=== PATIENT | female | born 1975 | race Caucasian/White ===

== ENCOUNTER 2017-01-19 11:07 | Inpatient (IN) | payer OTHER ==
[~2017-01-19] VITALS: Ht 160 cm; Wt 122.5 kg
[2017-01-19] MEDS ORDERED: EFFEXOR-XR75 MG PO (11:39)
[2017-01-19] MEDS ORDERED: WELLBUTRIN XL300 M1 PO (11:39)
[2017-01-19] MEDS ORDERED: DEPAKOTE500 MG PO (11:39)
[2017-01-19] MEDS ORDERED: TRAZODONE50 M1 PO (11:40)
[2017-01-19] MEDS ORDERED: ARISTADA441 MG/1.6 (11:43)
[2017-01-19] MEDS ORDERED: METFORMIN HYD1000 M2 PO (11:44)
[2017-01-19] MEDS ORDERED: LANTUS SOLOS100 U/M1 SC (11:44)
[2017-01-19] MEDS ORDERED: ENALAPRIL MALEAT5 MG (11:45)
[2017-01-19 11:49] LABS: BASOPHIL % 0.3 % (0-2); PLATELET COUNT 242 x10^3mcL (130-400)
[2017-01-19 12:01] LABS: UA SPECIFIC GRAVITY >=1.030 (1.005-1.035); microscopic required? YES; urine erythrocyte 1+ (NEGATIVE)
[2017-01-19 12:08] LABS: RED CELL DISTRIBUTION WIDTH 15.1 % (11.5-14.5)
[2017-01-19 12:19] LABS: CARBON DIOXIDE 27.8 mmol/L (21-32); CHLORIDE SERUM 102 mmol/L (98-107); CREATININE SERUM 0.9 mg/dL (0.6-1.0); GFR1 > 60 mL/min; GLUCOSE SERUM 293 mg/dL (74-106); POTASSIUM SERUM 4.4 mmol/L (3.5-5.1); SODIUM SERUM 138 mmol/L (136-145)
[2017-01-19 12:22] LABS: ALKALINE PHOSPHATASE 102 U/L (46-116); ALT/SGPT 59 U/L (14-59); AST/SGOT 38 U/L (15-37); BILIRUBIN TOTAL 0.41 mg/dL (0.20-1.00); TOTAL PROTEIN, SERUM 7.3 g/dL (6.4-8.2)
[2017-01-19 12:28] LABS: ALBUMIN 3.3 g/dL (3.4-5.0)
[2017-01-19 12:48] LABS: AMPHETAMINE QUAL UR NONE DETECTED (NEG <=1000)
[2017-01-19 20:02] VITALS: BP 149/78
[2017-01-19 20:07] VITALS: Ht 160 cm; Wt 122.5 kg
[2017-01-19 20:14] LABS: CHOLESTEROL/HDL RATIO 3.4
[2017-01-19 20:24] LABS: FREE T4 0.87 ng/dL (0.76-1.46); FREE THYROXINE INDEX 2.3 ug/dL (1.4-4.5); T4(THYROXINE) 7.6 ug/dL (4.7-13.3)
[2017-01-19 20:25] LABS: T3 TOTAL 1.35 ng/mL
[2017-01-20 05:24] VITALS: BP 124/77
[2017-01-20 06:14] LABS: BASOPHIL % 0.4 % (0-2); PLATELET COUNT 206 x10^3mcL (130-400)
[2017-01-20 06:21] LABS: RED CELL DISTRIBUTION WIDTH 15.9 % (11.5-14.5)
[2017-01-20 06:48] LABS: CALCIUM 8.6 mg/dL (8.5-10.1); CARBON DIOXIDE 24.1 mmol/L (21-32); CHLORIDE SERUM 103 mmol/L (98-107); CREATININE SERUM 0.7 mg/dL (0.6-1.0); GFR1 > 60 mL/min; GLUCOSE SERUM 248 mg/dL (74-106); MAGNESIUM 1.9 mg/dL (1.8-2.4); PHOSPHOROUS 3.6 mg/dL (2.5-4.9); POTASSIUM SERUM 4.1 mmol/L (3.5-5.1); SODIUM SERUM 140 mmol/L (136-145)
[2017-01-20 22:01] VITALS: BP 103/60
[2017-01-21 06:18] LABS: BASOPHIL % 0.3 % (0-2); PLATELET COUNT 196 x10^3mcL (130-400)
[2017-01-21 06:29] VITALS: BP 111/69
[2017-01-21 06:30] LABS: CALCIUM 8.3 mg/dL (8.5-10.1); CARBON DIOXIDE 27.3 mmol/L (21-32); CHLORIDE SERUM 104 mmol/L (98-107); CREATININE SERUM 0.7 mg/dL (0.6-1.0); GFR1 > 60 mL/min; GLUCOSE SERUM 159 mg/dL (74-106); POTASSIUM SERUM 3.6 mmol/L (3.5-5.1); SODIUM SERUM 140 mmol/L (136-145)
[2017-01-21 06:41] LABS: RED CELL DISTRIBUTION WIDTH 15.5 % (11.5-14.5)
[2017-01-21 09:40] VITALS: BP 109/69
[2017-01-21 10:28] VITALS: BP 109/69
== END 2017-01-21 12:00 | disposition home or self-care (01) | DRG 154 ==
LOC: ED 11:07 → DU 18:20
PROVIDERS: Emergency Medicine; Family Medicine; ADMIT Family Medicine
DX: G47.30 Sleep apnea, unspecified (principal); E43 Unspecified severe protein-calorie malnutrition; F31.4 Bipolar disorder, current episode depressed, severe, without psychotic features; D68.69 Other thrombophilia; R45.851 Suicidal ideations; Z68.42 Body mass index [BMI] 45.0-49.9, adult; E11.65 Type 2 diabetes mellitus with hyperglycemia; J45.909 Unspecified asthma, uncomplicated; G47.00 Insomnia, unspecified; I10 Essential (primary) hypertension; F41.8 Other specified anxiety disorders; E66.01 Morbid (severe) obesity due to excess calories; Z87.891 Personal history of nicotine dependence; Z79.4 Long term (current) use of insulin; Z79.84 Long term (current) use of oral hypoglycemic drugs
CPT/HCPCS: 82962; 83880; 84439; G0480; J1815; J2270; J7030; J7613; Q0092

== ENCOUNTER 2017-05-26 22:28 | Inpatient (IN) | payer OTHER ==
[~2017-05-26] VITALS: Ht 160 cm; Wt 121.6 kg
[~2017-05-26 22:28] MED LIST: ARISTADA441 MG/1.6; DEPAKOTE500 MG PO; EFFEXOR-XR75 MG PO; ENALAPRIL MALEAT5 MG; LANTUS SOLOS100 U/M1 SC; METFORMIN HYD1000 M2 PO; TRAZODONE50 M1 PO; WELLBUTRIN XL300 M1 PO
--- NOTE | 2017-05-26 23:20 | NUR ---
D10 AND 2 AMPS OF D50 PLACED AT THE BEDSIDE FOR STANDBY PER DR SEWELL
--- NOTE | 2017-05-26 23:27 | NUR ---
PATIENT SEEN IN ROOM, EMS REPORTS PATIENT OF ON HER INSULIN, 6 X 300 UNITS OF NOVOLOG, LANTUS X 2 300 UNITS. PATIENT EXPTRSS SHE FEELS TIRED AND SWEATY. PATIENT WAS SEEN BY MD. FINGER STICK BLOOD SUGAR IS 254 MG/DL. PATIENT REPORTS BLOOD SUGAR AT HOME WAS 401 AT 8PM WHEN SHE TOOK THE INSULIN.
[2017-05-26 23:42] LABS: BASOPHIL % 0.4 % (0-2); PLATELET COUNT 236 x10^3mcL (130-400)
[2017-05-26 23:44] LABS: RED CELL DISTRIBUTION WIDTH 15.2 % (11.5-14.5)
[2017-05-26 23:58] LABS: CARBON DIOXIDE 29.7 mmol/L (21-32); CHLORIDE SERUM 101 mmol/L (98-107); CREATININE SERUM 0.8 mg/dL (0.6-1.0); GFR1 > 60 mL/min; GLUCOSE SERUM 237 mg/dL (74-106); POTASSIUM SERUM 3.3 mmol/L (3.5-5.1); SODIUM SERUM 139 mmol/L (136-145)
[2017-05-27] VITALS (7 sets, daily range): BP systolic 114–153; BP diastolic 64–93; Ht 160 cm; Wt 121.6 kg
[2017-05-27 00:05] LABS: ALBUMIN 3.1 g/dL (3.4-5.0); ALKALINE PHOSPHATASE 110 U/L (46-116); ALT/SGPT 66 U/L (14-59); AST/SGOT 28 U/L (15-37); BILIRUBIN TOTAL 0.2 mg/dL (0.20-1.00); TOTAL PROTEIN, SERUM 7.4 g/dL (6.4-8.2)
[2017-05-27] MEDS ORDERED: INVEGA TRINZA (00:06)
--- NOTE | 2017-05-27 00:12 | NUR ---
PATIEN AMBULATED TO THE BATHROOM FLUID BOLUS GIVEN ON RETURN. PATIENT DENIES ANY COMPLAINT.
--- NOTE | 2017-05-27 01:03 | NUR ---
REPORT WAS GIVEN TO MOHSEN. PATIENT TRANSPORTED TO ROOM ICU #3.
[2017-05-27 01:04] LABS: UA SPECIFIC GRAVITY 1.025 (1.005-1.035); microscopic required? YES; urine erythrocyte 1+ (NEGATIVE)
[2017-05-27 01:13] LABS: AMPHETAMINE QUAL UR NONE DETECTED (NEG <=1000)
[2017-05-27 01:24] LABS: T3 TOTAL 1.07 ng/mL
--- NOTE | 2017-05-27 01:28 | NUR ---
PATIENT SLEEPING AND SNORING. BLOOD SUGAR 505 MG, SAME RECCHECKED -NOW 475 MG/DL
[2017-05-27 01:49] LABS: MAGNESIUM 1.8 mg/dL (1.8-2.4)
[2017-05-27 01:50] LABS: CHOLESTEROL/HDL RATIO 8.5
[2017-05-27 01:54] LABS: FREE T4 0.96 ng/dL (0.76-1.46); FREE THYROXINE INDEX 2.8 ug/dL (1.4-4.5); T4(THYROXINE) 8.8 ug/dL (4.7-13.3)
--- NOTE | 2017-05-27 02:52 | NUR ---
PATIENT WAS RECEIVED FROM ED VIA GUERNEY ASSISTED BY NURSE. NO DISTRESS NOTED. PATIENT DENIES PAIN. PATIENT STATES HAVING THOUGHTS OF HARMING HERSELF AT THIS TIME. PATIENT DENIES HAVING ANY PLAN AT THIS TIME BUT STATES "SHE JUST WANTS TO ". IV SITE TO LEFT HAND, PATENT AND INTACT. IV SITE TO RIGHT HAND WAS INFILTRATED, DC'D AT THIS TIME. IV FLUID STARTED PER DOCTOR'S ORDER. BED IN LOWEST POSITION. CALL LIGHT WITHIN REACH. WILL CONTINUE TO MONITOR.
--- NOTE | 2017-05-27 03:30 | NUR ---
PATIENT RESTING COMFORTABLY WITH NO DISTRESS NOTED AT THIS TIME. WILL CONTINUE TO MONITOR.
[2017-05-27 05:17] LABS: BASOPHIL % 0.4 % (0-2); PLATELET COUNT 213 x10^3mcL (130-400)
[2017-05-27 05:19] LABS: RED CELL DISTRIBUTION WIDTH 15.1 % (11.5-14.5)
[2017-05-27 05:31] LABS: CALCIUM 8.6 mg/dL (8.5-10.1); CARBON DIOXIDE 30.5 mmol/L (21-32); CHLORIDE SERUM 101 mmol/L (98-107); CREATININE SERUM 0.6 mg/dL (0.6-1.0); GFR1 > 60 mL/min; GLUCOSE SERUM 170 mg/dL (74-106); MAGNESIUM 1.8 mg/dL (1.8-2.4); PHOSPHOROUS 3.7 mg/dL (2.5-4.9); SODIUM SERUM 141 mmol/L (136-145)
--- NOTE | 2017-05-27 06:01 | NUR ---
PATIENT RESTED SINCE ARRIVING ON UNIT. NO DISTRESS NOTED. NO C/O PAIN/DISCOMFORT. SAFETY AND COMFORT MEASURES MAINTAINED. BED IN LOWEST POSITION. CALL LIGHT WIHTIN REACH. WILL ENDORSE TO NEXT SHIFT NURSE.
--- NOTE | 2017-05-27 07:12 | NUR ---
RECIEVED REPORT FROM MOHSEN PORTILLO AT BEDSIDE. WILL RESUME CARE.
--- NOTE | 2017-05-27 07:42 | NUR ---
SET BREAKFAST TRAY WITH MINIMIAL ASSISTS. BED AT LOW AND CALL LIGHT WITHIN REACH.
--- NOTE | 2017-05-27 08:00 | NUR ---
PT IS AAOX4 ABLE TO FOLLOW VERBAL COMMANDS AND MAKE NEEDS KNOWN. BL PUPILS EQUAL AND REACTIVE TO LIGHT 2MM, BRISK. PT DENIES NAPOLES. PT WEAR GLASSES, NO DRAINAGE NOTED FROM EENT. PT ON RA SYMMETRIC CHEST RISE. DIMINISH LUNG SOUNDS TO BL SIDES OF CHEST. PT DENIES COUGH. BS ACTIVE X4 QUADRANTS. ABD IS ROUND AND SOFT. NONTENDER PALPATION TO ABD. NO SIGNS OF BM AT THIS TIME. PT IS ABLE TO VOID. BEDSIDE COMMODES AT BEDSIDE. PT IS ABLE TO MOVE AROUND BED BY SELF. PT IS HAS MILD GENERALIZED WEAKNESS. PUPLSE ARE MOD PALPABLE TO BUE AND BLE. CAP REFILL <3SEC. TRACE EDEMA TO BLE. PT DENIES ANY WANTS OF HURTING SELF OR OTHERS. DENIES HAVING A PLAN. PT DENIES ANT DISCOMFORT. D10 INFUSING AT 100ML/HR TO L HAND. IV SITE WNL. BED AT LOW AND CALL LIGHT WITHIN REACH. TO
--- NOTE | 2017-05-27 09:30 | NUR ---
DR. RODRIGUEZ AT BEDSIDE TO UPDATE PLAN OF CARE. AWAITING FOR NEW ORDERS.
--- NOTE | 2017-05-27 10:00 | NUR ---
PT ATE 80% OF BREAKFAST TOLERATED DIET WELL.
--- NOTE | 2017-05-27 10:09 | NUR ---
BLOOD SUGAR 159 DR. MICHAEL MADE AWARE PT IS NOT COVERED FOR INSULIN.
--- NOTE | 2017-05-27 12:34 | NUR ---
PT IS AOX4 ABLE TO FOLLOW VERBAL COMMANDS AND MAKE NEEDS KNOWN. PT DENIES NAPOLES. BL PUPILS EQUAL AND REACTIVE TO LIGHT 3MM, BRISK. PT WEARS GLASSES AND NO DRAINAGE NOTED FROM EENT. GCS 15. MOD PALPABLE BUE AND BLE PULSES. TRACE EDEMAT TO BLE. CAP REFILL <3 SEC. BS ACTIVE X4 QUADRANTS. NONTENDER PALPATION TO ABD. NO SIGNS OF N/V. PT IS ABLE TO VOID BY SELF. BEDSIDE COMMODE AT BEDSIDE. PT IS ABLE TO GET UP TO BEDSIDE COMMODE WITH MINIMAL ASSISTS. PT DENIES ANY PAIN AND DISCOMFORT AT THIS TIME. PT DENIES WANTING TO HURT SELF OR HAVE PLANS TO HURT SELF. BED AT LOW AND CALL LIGHT WITHIN REACH.
--- NOTE | 2017-05-27 13:00 | NUR ---
PT ATE 90% OF LUNCH, TOLERATE DIET WELL. NO S/S OF N/V.
--- NOTE | 2017-05-27 13:40 | NUR ---
POISON CONTROL CALLED AT THIS TIME AND NOTIFIED OF PT'S CASE. RECOMMENDATIONS INCLUDE MONITORING: BLOOD SUGAR, PHOS, MAG, AND POTASSIUM. CONTINUING DEXTROSE UNTIL PATIENT IS PAST THE 24 HOUR QUIANA DUE TO LANTUS DOSAGE. THEN MONITOR BLOOD SUGARS FREQUENTLY FOR 4-6HOURS AFTER STOPPING DEXTROSE TO ENSURE THAT PT IS ABLE TO MAINTAIN WITHOUT DEXTROSE SUPPORT. DR MICHAEL MADE AWARE
--- NOTE | 2017-05-27 15:23 | NUR ---
PT C/O NAPOLES 01/05 WILL MEDCATE PER EMAR.
--- NOTE | 2017-05-27 15:30 | NUR ---
PT IS AAOX4 ABLE TO VERBALIZE NEEDS AND FOLLOW VERBAL COMMANDS. BL PUPILS EQUAL AND REACTIVE TO LIGHT 3MM, BRISK. GCS 15. PT ON RA. DIMINISH LUNG SOUNDS THROUGHOUT LUNG HOOKS. SYMMETRIC CHEST RISE. BS ACTIVE X4 QUANTRANTS. DENIES N/V. S1S2 PRESENT UPON AUSCULTATION. PT DENIES CHEST PAIN. TRACE EDEMA TO BLE. D10 INFUSING TO LHAND AT 20ML/HR. IV SITE WNL. BED AT LOW AND CALL LIGHT WITHIN REACH.
--- NOTE | 2017-05-27 16:24 | NUR ---
DR. GOINS AT BEDSIDE TO ASSESS PT. PER DR. GOINS PT IS NOT CLEAR, PT IS SUICIDAL.
[2017-05-27 18:45] LABS: CALCIUM 8.9 mg/dL (8.5-10.1); CARBON DIOXIDE 30.9 mmol/L (21-32); CHLORIDE SERUM 102 mmol/L (98-107); CREATININE SERUM 0.8 mg/dL (0.6-1.0); GFR1 > 60 mL/min; GLUCOSE SERUM 208 mg/dL (74-106); POTASSIUM SERUM 4.3 mmol/L (3.5-5.1); SODIUM SERUM 140 mmol/L (136-145)
--- NOTE | 2017-05-27 19:11 | NUR ---
PT REPORT RECEIVED FROM LINDSEY CROSS. QUESTIONS AND CONCERNS ADDRESSED BEDSIDE.
--- NOTE | 2017-05-27 19:13 | NUR ---
REPORT GIVEN TO RHONDA PORTILLO AT BEDSIDE. ALL QUESTIONS AND CONCERNS ANSWERED.
--- NOTE | 2017-05-27 19:20 | NUR ---
RECEIVED PT LAYING IN BED ASLEEP, AWAKENS EASILY TO VERBAL/TACTILE STIMULUS. A&O X4, FOLLOWS COMMANDS, ABLE TO MAKE NEEDS KNOWN. OPENS EYES SPONTANEOUSLY. PT IS ON RA, BREATHING EVEN AND UNLABORED, SYMMETRICAL CHEST EXANSION, NSR NOTED TO SENIOR UX DESIGNER, DENIES CHEST PAIN. PT WEARS GLASSES, NO DRAINAGE TO EENT. TRACE EDMEA TO BLE, MODERATE PULSES BUE/BLE. INFUSING D10 TO IV SITE. ABDOMEN OBESE, ACTIVE BOWEL SOUNDS X4 QUADRANTS, NO BM NOTED, ABLE TO USE BEDSIDE COMMOE TO URINATE. BED IN LOWEST POSITION FOR PT SAFETY, WILL MONITOR PT CLOSELY.
--- NOTE | 2017-05-27 21:00 | NUR ---
DR. CERNA AT BEDSIDE TO ASSESS THE PT.
--- NOTE | 2017-05-27 21:41 | NUR ---
RT AT BEDSIDE TO TITRATED FIO2 TO 100%.
--- NOTE | 2017-05-28 01:22 | NUR ---
PT RESTING IN BED ASLEEP, NO S/S OF DISTRESS NOTED.
[2017-05-28 03:38] VITALS: BP 120/78
--- NOTE | 2017-05-28 04:34 | NUR ---
OUTCOMES SPECIALIST AT BEDSIDE AT BEDSIDE FOR BLOOD DRAW.
--- NOTE | 2017-05-28 04:59 | NUR ---
D10 IV FLUID DC'D. PT STARTED ON D5 1/2 NS AT 50 ML/HR.
--- NOTE | 2017-05-28 05:21 | NUR ---
DR. SKINNER AT BEDSIDE TO ASSESS THE PT. QUESTIONS AND CONCERNS ADDRESSED BEDSIDE.
[2017-05-28 05:50] LABS: CALCIUM 8.9 mg/dL (8.5-10.1); CHLORIDE SERUM 102 mmol/L (98-107); CREATININE SERUM 0.7 mg/dL (0.6-1.0); GFR1 > 60 mL/min; GLUCOSE SERUM 152 mg/dL (74-106); POTASSIUM SERUM 3.7 mmol/L (3.5-5.1); SODIUM SERUM 140 mmol/L (136-145)
--- NOTE | 2017-05-28 07:04 | NUR ---
PT REPORT GIVEN TO LINDSEY CROSS. UPDATES PROVIDED.
--- NOTE | 2017-05-28 07:11 | NUR ---
RECIEVED REPORT FROM RHONDA PORTILLO AT BEDSIDE. WILL RESUME CARE.
[2017-05-28 07:50] VITALS: BP 140/81
--- NOTE | 2017-05-28 07:59 | NUR ---
PT IS AAOX4 ABLE TO FOLLOW VERBAL COMMANDS AND MAKE NEEDS KNOWN. PT DENIES NAPOLES. PT OPENS EYES SPONTANEOUSLY. BL PUPILS EQUAL PUPILS AND REACTIVE TO LIGHT 3MM, BRISK. PT WEARS GLASSES. NO DRAINAGE NOTED FROM EENT. PT ON RA, DIMINISH LUNG SOUNDS TO BL LUNG HOOKS. SYMMETRIC CHEST RISE. RR 27, SOB NOTED, NO ACUTE DISTRESS NOTED. PT DENIES HAVING ANY DIFFICULTIES BREATHING PER PT IT'S HER BASELINE. BS ACTIVE X 4 QUADRANTS, ABD IS ROUND AND FIRM. NO SIGNS OF N/V AND ABD DISCOMFORT. PT IS ABLE TO GET UP TO BEDSIDE COMMODES WITH MINIMIAL ASSISTANCE. NO EDEMA NOTED. MODERATE PULSES TO BUE AND BLE. SCD IN PLACE TO BLE. PT DENIES CHEST PAIN, S1S2 PRESENT UPON AUSCULATION. PT DENIES ANY PAIN AT THIS TIME. D51/2NS @ 50ML/HR TO LHAND. IV SITE WNL. BED AT LOW AND CALL LIGHT WITHIN REACH.
--- NOTE | 2017-05-28 08:34 | NUR ---
TURNED OFF TUBE TUBING FOR CPAP TRAILS. WILL CONTINUE TO MONITOR. RACIEL RT AT BEDSIDE.
--- NOTE | 2017-05-28 10:20 | NUR ---
PT AMBULATED TO BEDSIDE COMMODE WITH STEADY GAIT TO VOID. ALL LINES ARE CHANGED AND GOWN. PT WAS ABLE TO WIPE SELF DOWN WITH WIPES, ASSISTED PT TO WIPE THE BACK. WASHED PT'S HAIR WITH WATERLESS CAP. PT WAS ABLE TO AMBULATE WITH STEADY GAIT TO SKIN AND DO SELF CARE.
--- NOTE | 2017-05-28 10:38 | NUR ---
DR. TORRES AT BEDSIDE DISCUSSING PLAN OF CARE WITH PT.
--- NOTE | 2017-05-28 10:57 | NUR ---
PT C/O OF SORE THROAT 12/06 WILL MEDICATE PER EMAR. WILL CONTINUE TO MONITOR.
--- NOTE | 2017-05-28 11:15 | NUR ---
ECHO NOLASCO 252, GIIG GIVE [address] SKINNER IS MADE AWARE.
[2017-05-28 11:37] VITALS: BP 150/89
--- NOTE | 2017-05-28 11:47 | NUR ---
PT IS AAOX4 ABLE TO FOLLOW VERBAL COMMANDS AND MAKE NEEDS KNOWN. BL PUPILS EQUAL AND REACTIVE TO LIGHT 3MM, BRISK. PT DENIES NAPOLES. S1S2 PRESENT UPON AUSCULTATION. PT DENIES DIZZINESS AND CHEST PAIN. BS ACTIVE X4 QUADRANTS. NO SIGNS OF N/V. ABD IS ROUND AND FIRM. NONTENDER PALPATION TO ABD. PT IS ABLE TO VOID. BEDSIDE COMMODE AT BEDSIDE. NO EDEMA NOTED, SCD IS ON BLE. PT DENIES ANY PAIN AT THIS TIME. D51/2NS INFUSING AT 50ML/HR TO LHAND. BED AT LOW AND CALL LIGHT WITHIN REACH. PT SITTING IN BED WATCHING TV.
--- NOTE | 2017-05-28 13:59 | NUR ---
PT RESTING IN BED WATCHING TV AT THIS TIME. NO SIGNS OF ACUTE DISTRESS. BED AT LOW AND CALL LIGHT WITHIN REACH. WILL CONTINUE TO MONITOR.
[2017-05-28 15:12] VITALS: BP 121/58
--- NOTE | 2017-05-28 15:25 | NUR ---
PT IS AAOX4 ABLE TO FOLLOW VERBAL COMMANDS AND VERBALIZE NEEDS. BL PUPILS EQUAL AND REACTIVE TO LIGHT 3MM, BRISK. PT DENIES NAPOLES. PT ON RA, DIMINISH LUNG SOUNDS TO BL SIDES OF LUNGS. SYMMETRIC CHEST RISE. BS ACTIVE X4 ABD. NO SIGNS OF N/V. BEDSIDE COMMODES AT BEDSIDE PT IS ABLE TO AMBULATE TO COMMODE WITH STEADY GAIT. NO EDEMA NOTED. D51/2NS INFUSING AT 50ML/HR TO L HAND. IV SITE WNL. PT DENIES ANY PAIN OR DISCOMFORT AT THIS TIME. BED AT LOW AND CALL LIGHT WITHIN REACH.
--- NOTE | 2017-05-28 19:05 | NUR ---
PT REPORT RECEIVED FROM LINDSEY CROSS. QUESTIONS AND CONCERNS ADDRESSED BEDSIDE.
--- NOTE | 2017-05-28 19:10 | NUR ---
RECEIVED PT ASLEEP IN BED, AWAKENS TO VERBAL/TACTILE STIMULUS. A&O X4, FOLLOWS COMMANDS, ABLE TO MAKE NEEDS KNOWN. PT IS ON RA, EVEN AND UNLABORED BREATHING, SYMMETRICAL CHEST EXPANSION, PT DENIES COUGH. NSR NOTED TO SENIOR NET DEVELOPER, PT DENIES PAIN. NO EDMEA NOTED, PT REFUSES SCD'S, PT EDUCATION PROVIDED. ABDOMEN OBESE, NO BM NOTED, PT ABLE TO USE BEDSIDE COMMODE TO URINATE. PT ABLE TO TURN AND REPOSITON SELF, NO CONTRACTURES OR DEFORMITIES NOTED. BED IN LOWEST POSITION FOR PT SAFETY.
[2017-05-28 19:31] VITALS: BP 119/75
[2017-05-28 23:54] VITALS: BP 95/47
--- NOTE | 2017-05-29 01:00 | NUR ---
PT ASLEEP RESTING IN BED AT THIS TIME, NO S/S OF DISTRESS NOTED.
[2017-05-29 03:50] VITALS: BP 104/66
--- NOTE | 2017-05-29 04:10 | NUR ---
REVIEW RN AT BEDSIDE FOR MORNING BLOOD DRAW.
[2017-05-29 05:09] LABS: CALCIUM 8.5 mg/dL (8.5-10.1); CARBON DIOXIDE 28.5 mmol/L (21-32); CHLORIDE SERUM 103 mmol/L (98-107); CREATININE SERUM 0.7 mg/dL (0.6-1.0); GFR1 > 60 mL/min; GLUCOSE SERUM 195 mg/dL (74-106); POTASSIUM SERUM 3.9 mmol/L (3.5-5.1); SODIUM SERUM 139 mmol/L (136-145)
--- NOTE | 2017-05-29 05:23 | NUR ---
DR. JAUREGUI AT BEDSIDE, QUESTIONS AND CONCERNS ADDRESSED.
--- NOTE | 2017-05-29 05:33 | NUR ---
DR. SKINNER AT BEDSIDE TO ASSESS THE PT. QUESTIONS AND CONCERNS ADDRESSED.
--- NOTE | 2017-05-29 07:45 | NUR ---
SLEEPING, AROUSABLE. ORIENTED X4. OBESE. BREATHING SOUND DIMINISHED SMITA BASES, BUT CLEARE SMITA UPPER LOBES. NO RESP DISTRESS ON RA. IVF OF NS 150CC/HR INFUSING WELL, IV SITE TO L HAND INTACT. DENIED PAIN. CONTINUE MONITOR.
[2017-05-29 08:00] VITALS: BP 126/74
--- NOTE | 2017-05-29 08:45 | NUR ---
FINISHED 855 OF [facility] DIET BREAKFAST. TOLERATED WELL.
[2017-05-29 12:00] VITALS: BP 88/51
--- NOTE | 2017-05-29 14:30 | NUR ---
DR. GOINS CAME TO SEE PATIENT.
[2017-05-29 16:00] VITALS: BP 155/85
--- NOTE | 2017-05-29 17:19 | NUR ---
[facility]. REPORT GIVEN TO LINDSEY VILCHIS.
--- NOTE | 2017-05-29 17:40 | NUR ---
PATIENT TRANSFERED TO [facility]A. ENDORSED CARE TO LINDSEY VILCHIS.
--- NOTE | 2017-05-29 17:45 | NUR ---
RECEIVED PT FROM ICU. PT IS STABLE AND VITAL SIGNS STABLE. DENIES ANY PAIN. NO SUICIDAL IDEA THIS TIME. WILL MONITOR.
[2017-05-29 18:05] VITALS: BP 116/62
--- NOTE | 2017-05-29 19:20 | NUR ---
PT IS RESTING IN BED. SHE IS STABLE AND DENIES ANY PAIN. CALL LIGHT WITHIN REACH. SAFETY PRECAUTIONS IN PLACE. SHIFT REPORT TO [facility] NURSE.
--- NOTE | 2017-05-29 19:45 | NUR ---
RECEIVED REPORT FROM DAY SHIFT. PT RESTING IN BED. AWAKE, ALERT AND ORIENTED X3. NO C/O PAIN. NO DISTRESS NOTED ON ROOM AIR. IV ON LEFT HAND, INTACT. SAFETY MEASURES IN PLACE. BED IN LOWEST POSTIION. SIDE RAILS UP X2. INSTRUCTED PT TO CALL IF ASSISTANCE IS NEEDED. CALL LIGHT WITHIN REACH.
[2017-05-29 21:43] VITALS: BP 129/75
[2017-05-30 05:08] VITALS: BP 138/74
--- NOTE | 2017-05-30 06:33 | NUR ---
PT SLEPT WELL DURING SHIFT. NO C/O PAIN. NO SOB ON ROOM AIR. NO DISTRESS NOTED. DENIES HAVING THOUGHTS OF HARMING SELF. SAFETY MEASURES MAINTAINED. CALL LIGHT WITHIN REACH. WILL ENDORSE CONTINUITY OF CARE TO ONCOMING RN.
--- NOTE | 2017-05-30 08:31 | NUR ---
SITTING BEDSIDE EATING BREAKFAST. ALERT AND ORIENTED. NO SOB NOTED, ROOM AIR. OBESE. IVF NS @ 50 TO LEFT HAND WNL. DENIES PAIN, NAUSEA. DENIES SUICIDAL IDEATION OR PLAN FOR SUICIDE. "NOT ANYMORE". WHEN ASKED WHAT CHANGED, "TIME". TOOK AM MEDS WITHOUT DIFFICULTY. PROVIDED WITH WIPES FOR AM CLEANUP. CALL LIGHT WITHIN REACH.
--- NOTE | 2017-05-30 09:39 | NUR ---
ASLEEP, RESP EVEN AND UNLABORED.
--- NOTE | 2017-05-30 10:30 | NUR ---
DR GONZALEZ IN TO SEE PATIENT. PLAN FOR DC HOME TODAY.
[2017-05-30 10:32] VITALS: BP 136/71
[2017-05-30 10:50] VITALS: BP 136/71
--- NOTE | 2017-05-30 13:28 | NUR ---
WATCHING TV, NO DISTRESS NOTED.
[2017-05-30 14:54] VITALS: BP 124/73
[2017-05-30] MEDS ORDERED: LANTUS SOLOS100 U/M1 SQ (16:33)
--- NOTE | 2017-05-30 17:13 | NUR ---
WATCHING TV, NO DISTRESS NOTED.
[2017-05-30 17:25] VITALS: BP 126/74
--- NOTE | 2017-05-30 18:03 | NUR ---
ATE 100% OF DINNER. IV DC'D CATHETER INTACT. REVIEWED DC INSTRUCTIONS, VERBALIZED UNDERSTANDING. HAS CALLED BROTHER FOR RIDE.
--- NOTE | 2017-05-30 18:22 | NUR ---
OFF FLOOR WITH UNIFIED COMMUNICATIONS ENGINEER, ALL BELONGINGS WITH PATIENT.
== END 2017-05-30 18:20 | disposition home or self-care (01) | DRG 918 ==
LOC: ED 22:28 → IC 23:47 → DU 05-29 17:39
PROVIDERS: Emergency Medicine; Family Medicine Sports Medicine; ADMIT Family Medicine
DX: T38.3X2A Poisoning by insulin and oral hypoglycemic [antidiabetic] drugs, intentional self-harm, initial encounter (principal); F33.9 Major depressive disorder, recurrent, unspecified; Z68.42 Body mass index [BMI] 45.0-49.9, adult; R45.851 Suicidal ideations; E44.0 Moderate protein-calorie malnutrition; E66.01 Morbid (severe) obesity due to excess calories; E87.6 Hypokalemia; E83.39 Other disorders of phosphorus metabolism; F10.20 Alcohol dependence, uncomplicated; I10 Essential (primary) hypertension; E78.5 Hyperlipidemia, unspecified; Z91.5 Personal history of self-harm; Z79.4 Long term (current) use of insulin; Z79.84 Long term (current) use of oral hypoglycemic drugs; Y92.018 Other place in single-family (private) house as the place of occurrence of the external cause
CPT/HCPCS: 82962; 83880; 84439; B4164; G0480; J0696; J1815; J3480; J3490; J7030; Q0092